=== PATIENT | female | born 1970 | race Caucasian/White ===

== ENCOUNTER 2024-09-16 15:20 | Emergency (ER) | payer MEDICAID, SELFPAY ==
--- NOTE | ~2024-09-16 | XR_ITS ---
CLINICAL HISTORY: lower back pain, no trauma 3 views lumbar spine Comparison: CR/LA - LUMBAR SPINE 2TO 3 [id number] - 06/27/14 15:59 EST Findings: Normal alignment. Straightening of lordosis. No acute fractures or dislocation. No significant degenerative change. IMPRESSION: Straightening of lordosis suggesting possible muscle spasm. This document has been electronically signed by: Alejandrina Mayo MD on 09/16/2024 16:42:47
[2024-09-16 15:35] VITALS: BP 135/73; PULSE 76; RESP 20; TEMP 36.8; O2SAT 95; BMI 26.0
--- NOTE | 2024-09-16 15:41 | ED_ITS ---
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 ? Patient recently moved to the area from [place] She states that for months she has had back pain that radiates to her legs, she also complains of burning with urination. She complains of left-sided rib pain. She took naproxen at 9:00 a.m. this morning with improvement in her pain. She states that her pain is beginning to come back pain Denies any fevers, chills, coughing, shortness of breath. She reports general weakness and decreased energy The patient also reports that she was seen in [place] last year for anxiety She has no other complaints or concerns at this time Related Data Previous Rx's ?Medication ?Instructions ?Recorded cyclobenzaprine 10 mg tablet 10 mg PO TID PRN muscle spasm #20 09/16/24 tabs nitrofurantoin 100 mg PO Q12H 5 days #10 caps 09/16/24 monohydrate/macrocrystals 100 mg capsule (Macrobid) Allergies Allergy/AdvReac Type Severity Reaction Status Date / Time acetaminophen [From PERCOCET] Allergy Severe ITCHING Verified 09/16/24 15:37 oxycodone [From PERCOCET] Allergy Severe ITCHING Verified 09/16/24 15:37 adhesive [BANDAGE,ADHESIVE] Allergy Unknown ITCHY Verified 09/16/24 15:37 tapentadol [Tapentadol] Allergy Unknown ITCHY Verified 09/16/24 15:37 Review of Systems 2 Constitutional: Constitutional: Denies body ache(s), Denies chills, Denies fever(s), Denies headache(s), Reports malaise and Reports weakness ENT: Denies vertigo, Denies dizziness and Denies headache(s) Cardiovascular: Cardiovascular: Denies dyspnea Respiratory: Respiratory: Denies cough and Denies dyspnea Gastrointestinal: Gastrointestinal: Denies abdominal pain, Denies nausea and Denies vomiting Musculoskeletal: Musculoskeletal: Reports back pain and Reports radiating pain into limb Integumentary/Breasts: Skin/Breast: Denies rash Neurologic: Denies vertigo, Denies dizziness, Denies headache(s) and Reports weakness Psychiatric: Psychiatric: Denies anxiety PMFSH Social History Social History Advance Directives: No Advance Directives Information Provided: No Do you have a plan to hurt others: No Plan Physical Exam ED Vital Signs: Vital Signs - 24 hr 09/16/24 15:35 Temperature 98.3 F Pulse Rate 76 Respiratory Rate 20 Blood Pressure 135/73 Pulse Oximetry 95 Oxygen Delivery Method Room Air BMI result Body Mass Index 26.0 Const General: healthy appearing, comfortable, no acute distress, alert and awake Nutritional Appearance: well nourished Orientation/consciousness: patient oriented x3 HENMT Head: Yes normocephalic and Yes atraumatic Eyes Eyelids: Yes eyelids normal Conjunctivae: conjunctivae normal Sclerae: sclerae normal Corneas: corneas normal Pupils: Equal, round and reactive pupils present EOM: EOMs intact bilaterally Neck Neck: Yes full ROM Chest Other: Left chest wall tenderness in the anterior axillary line. No crepitus or deformity Resp Effort & Inspection: normal respiratory effort, able to speak in complete sentences and not labored Cardio Rate: regular rate Rhythm: regular rhythm GI Inspection: No distended Palpation (GI): Soft to palpation, not firm, nontender, no guarding and not rigid Back/Spine/Pelvis Other: Tenderness across the lumbar paraspinous region. Straight leg raise negative bilaterally. Skin General skin exam: elasticity normal Neuro General: patient oriented x3 Cranial nerves: Yes Equal, round and reactive pupils present and Yes Bilaterally intact EOM present Cognition (Neuro): normal cognition Extrem Other: Moving all extremities well without any obvious deformities Course Course Course Narrative: This is a Rapid Medical Examination (RME) performed by Evie Vinson PA-C in triage. Full HPI, ROS, assessment and treatment plan per primary provider in the Main ED. 54 yo Citizen Of [place] speaking femaicol here for eval of myalgias x2 weeks, worsening over the last 2 days. pain is worse across her lower back. no upper respiratory sx. reports dysuria a few days ago. took naproxen at 0900 today. Plan: labs, UA, lumbar xr Reevaluation(s) Reevaluation #1: Patient's workup largely unremarkable, her urine does show trace bacteria with some leukocytes and leukocyte esterase, given that she was symptomatic we will treat for a UTI. We will treat her muscle spasms with cyclobenzaprine and she will be discharged to follow-up with the PCP Time: 22:34 Medications Administered Discontinued Medications Generic Name Dose Route Start Last Admin Trade Name Yuriy PRN Reason Stop Dose Admin Ketorolac Tromethamine 30 mg 09/16/24 20:48 09/16/24 21:05 Ketorolac Tromethamine 30 Mg/Ml Vial IM 09/16/24 20:49 30 mg ONCE ONE Administration Medical Decision Making Medical Decision Making [facility] Narrative: 54-year-old female presents for evaluation of weakness and back pain. Her symptoms seemed to have been going on for at least several months. She did not appear to have any acute issues. We will check urinalysis for her reported dysuria. Her labs do not show any significant abnormalities. The patient's lumbar x-ray shows straightening of the spine consistent with muscle spasms I discussed with the patient, we will treat with the Toradol. Differential Diagnosis Differential Diagnoses: The differential diagnosis associated with the presentation includes Back pain Radiculopathy Muscle spasm Fibromyalgia UTI Lab Data [facility] Lab Attestation statement: I reviewed the patient's lab results. No leukocytosis or significant anemia. Minor thrombocytosis of unclear etiology. No significant electrolyte abnormalities 09/16/24 16:14 09/16/24 16:14 Labs: Lab Results 09/16/24 09/16/24 Range/Units 16:14 21:47 WBC 9.3 (4.8-10.8) X10*3/uL RBC 4.57 (4.20-5.50) X10*6/uL Hgb 13.2 (12.0-16.0) g/dl Hct 39.9 (37.0-47.0) % MCV 87.3 (80.0-98.0) fL MCH 28.9 (27.0-33.0) pg MCHC 33.1 (31.0-35.0) g/dl RDW 12.0 (11.0-16.0) % Plt Count 408 H (160-400) X10*3/uL MPV 9.3 L (9.4-12.3) fL Immature Gran % (Auto) 0.2 (0.0-0.4) % Neut % (Auto) 53.4 (45-73) % Lymph % (Auto) 30.0 (20-40) % Seminole % (Auto) 8.2 (2-11) % Eos % (Auto) 7.4 H (0-4) % Baso % (Auto) 0.8 (0-2) % Lymph # (Auto) 2.8 (1.2-4.9) X10*3/uL Seminole # (Auto) 0.8 (0.1-1.2) X10*3/uL Eos # (Auto) 0.7 H (0.0-0.4) X10*3/uL Baso # (Auto) 0.1 (0.0-0.2) X10*3/uL Abs Immat Gran (auto) 0.02 (0.00-0.03) X10*3/uL Absolute Neuts (auto) 5.0 (2.0-8.3) x10*3/uL Absolute Nucleated RBC 0.000 (0.0-0.012) X10*3/uL Nucleated RBC % (auto) 0.0 (0.0-0.2) /100WBC Sodium 138 (135-145) mmol/L Potassium 3.8 (3.3-5.1) mmol/L Chloride 105 (96-108) mmol/L Carbon Dioxide 26 (22-29) mmol/L Anion Gap 11 L (12-20) BUN 16 (9-16) mg/dL Creatinine 0.68 (0.5-1.4) mg/dL Estim Creat Clear Calc 94.5 Estimated GFR > 60 Random Glucose 101 (60-115) mg/dL Calcium 9.7 (8.4-10.2) mg/dL Total Bilirubin 0.5 (0.0-1.0) mg/dL AST 23 (5-31) U/L ALT 17 (0-31) U/L Alkaline Phosphatase 49 (39-117) U/L Total Protein 8.4 H (6.5-8.0) g/dL Albumin 4.4 (3.5-5.0) g/dL Urine Color Dark Yellow Urine Appearance Cloudy Urine pH 5.0 (5.0-9.0) Ur Specific Bantam >= 1.030 H (1.005-1.025) Urine Protein Trace (Neg-Trace) mg/dL Urine Glucose (UA) Negative (Negative) mg/dL Urine Ketones Trace (Negative) mg/dL Urine Blood Negative (Negative) Urine Nitrite Negative (Negative) Ur Leukocyte Esterase Trace H (Negative) Urine RBC 3-5 H (0-2) /HPF Urine WBC 11-20 H (0-5) /HPF Ur Squamous Epith Cells 6-10 (0-2) /HPF Calcium Oxalate Crystal Present Urine Bacteria Trace (None Seen) Hyaline Casts 0-2 (0-2) /LPF Influenza Type A (PCR) NEGATIVE (Negative) Influenza Type B (PCR) NEGATIVE (Negative) RSV RNA Qual (PCR) NEGATIVE (Negative) SARS-CoV-2 RNA (RT-PCR) NEGATIVE (Negative) Radiology Impression Discussion of test interpretation with radiology: I have reviewed the radiologist's reading. Radiologist Impression: Findings: Normal alignment. Straightening of lordosis. No acute fractures or dislocation. No significant degenerative change. IMPRESSION: Straightening of lordosis suggesting possible muscle spasm. This document has been electronically signed by: Alejandrina Mayo MD on 09/16/2024 16:42:47 Discharge Plan Discharge Clinical Impression: Back pain, Weakness, Urinary tract infection Patient Disposition: Home, Self-Care Instructions: Urinary Tract Infection in Women (ED), Muscle Spasm (ED) Additional Instructions: Your workup in the ER was reassuring. Your urinalysis did show a slight UTI. Your x-ray showed muscle spasms. Take the antibiotic twice daily for the next 5 days to treat the UTI. You may use ibuprofen as needed for pain. Use cyclobenzaprine as needed for muscle spasms. This may make you drowsy, do not drink alcohol or drive after taking it Prescriptions: New cyclobenzaprine 10 mg tablet 10 mg PO TID PRN (Reason: muscle spasm) Qty: 20 0RF nitrofurantoin monohyd/m-cryst [Macrobid] 100 mg capsule 100 mg PO Q12H 5 Days Qty: 10 0RF Rx Instructions: must administer with a meal/food Print Language: Citizen Of [place]
[2024-09-16 16:21] LABS: MANUAL DIFF FLAG NO
[2024-09-16 16:25] LABS: Basophils Absolute Auto 0.1 X10*3/uL (0.0-0.2); Basophils Percent Auto 0.8 % (0-2); Eosinophils Absolute Auto 0.7 X10*3/uL (0.0-0.4); Eosinophils Percent Auto 7.4 % (0-4); Hematocrit 39.9 % (37.0-47.0); Hemoglobin 13.2 g/dl (12.0-16.0); Imm Gran Abs Auto 0.02 X10*3/uL (0.00-0.03); Imm Gran Pct Auto 0.2 % (0.0-0.4); Lymphocytes Absolute Auto 2.8 X10*3/uL (1.2-4.9); Mean Corpuscular HGB Conc 33.1 g/dl (31.0-35.0); Mean Corpuscular Hemoglobin 28.9 pg (27.0-33.0); Mean Corpuscular Volume 87.3 fL (80.0-98.0); Mean Platelet Volume 9.3 fL (9.4-12.3); Monocytes Absolute Auto 0.8 X10*3/uL (0.1-1.2); Monocytes Percent Auto 8.2 % (2-11); Neutrophils Percent Auto 53.4 % (45-73); Platelet Count 408 X10*3/uL (160-400); Red Blood Count 4.57 X10*6/uL (4.20-5.50); White Blood Count 9.3 X10*3/uL (4.8-10.8)
[2024-09-16 16:40] LABS: Alanine Aminotransferase 17 U/L (0-31); Albumin Level 4.4 g/dL (3.5-5.0); Alkaline Phosphatase 49 U/L (39-117); Anion Gap 11 (12-20); Aspartate Amino Transferase 23 U/L (5-31); Bilirubin Total 0.5 mg/dL (0.0-1.0); Blood Urea Nitrogen 16 mg/dL (9-16); Calcium 9.7 mg/dL (8.4-10.2); Carbon Dioxide 26 mmol/L (22-29); Chloride 105 mmol/L (96-108); Creatinine Clr Calc Pharmacy 94.5; Estimated Glomerular Filt Rate > 60; Glucose Random 101 mg/dL (60-115); Potassium 3.8 mmol/L (3.3-5.1); Sodium 138 mmol/L (135-145); Total Protein 8.4 g/dL (6.5-8.0)
[2024-09-16 17:01] LABS: Influenza A PCR NEGATIVE (Negative); Influenza B PCR NEGATIVE (Negative); Resp Syncy Virus RNA Qual PCR NEGATIVE (Negative); SARS COV2 PCR INHOUSE NEGATIVE (Negative)
--- OUTSIDE RECORDS SUMMARY | 2024-09-16 20:25 | XMS_ITS | Clinical Summary ---
Author Organization [facility] ity Address [address] [place] [address] Care Team Providers Care Ribber Name Role Phone Unavailable Primary Care Provider Unavailabl e Social History Tobacco Use Types Packs/Day Years Used Date Smoking Tobacco: Never Assessed Sex and Gender Information Value Date Recorded Sex Assigned at Not on file Gender Identity Not on file Sexual Orientation Not on file Plan of Treatment Health Maintenance Due Date Last Done Comments Breast Cancer Screening 1968 DTaP,Tdap,and Td Vaccines (1 - Tdap) 1987 Hepatitis B Vaccines (1 of 3 - 19+ 3-dose series) 1987 Cervical Cancer Screening: P ap Smear 1989 Zoster Vaccines (1 of 2) 2018 Colorectal Cancer Screening: Colonoscopy 09/17/2023 Depression Screening 09/17/2023 HIV Screening 09/17/2023 Hepatitis C Screening 09/17/2023 Social Influencers of Health Screening 09/17/2023 COVID-19 Vaccine (2023-2 5 season) 2024 Influenza Vaccine (#1) 2024 HIB Vaccines Aged Out No longer eligi ble based on patient's age to complete this topic HPV Vaccines Aged Out No longer eligi ble based on patient's age to complete this topic Hepatitis A Vaccines Aged Out No long er eligible based on patient's age to complete this topic IPV Vaccines Aged Out No longer eligi ble based on patient's age to complete this topic MMR Vaccines Aged Out No longer eligi ble based on patient's age to complete this topic Meningococcal ACWY Vaccine Aged Out N o longer eligible based on patient's age to complete this topic Pneumococcal Vaccine: Pediat rics (0 to 5 Years) and At-Risk Patients (6 to 64 Years) Aged Out No longer eligible b ased on patient's age to complete this topic RSV Immunization Patients Un paula 20 months Aged Out No longer eligible b ased on patient's age to complete this topic Varicella Vaccines Aged Out No longer eligible based on patient's age to complete this topic
--- OUTSIDE RECORDS SUMMARY | 2024-09-16 20:25 | XMS_ITS | Clinical Summary ---
Author Organization [employer] Address [address] [place] [address] [address] [place] [address] Care Team Providers Care Lift Slab Operator Name Role Phone Unavailable Primary Care Provider Unavailabl e Social History Tobacco Use Types Packs/Day Years Used Date Smoking Tobacco: Never Assessed Comments Unknown Sex and Gender Information Value Date Recorded Sex Assigned at Female 06/22/2022 10:18 AM EDT Legal Sex Female 10:18 AM EDT Gender Identity Choose not to disclose 10:18 AM EDT Sexual Orientation Choose not to disclose 2021 10:18 AM EDT Plan of Treatment Health Maintenance Due Date Last Done Comments CT Colonography 1968 Colonoscopy 1968 Colorectal Cancer Screening 1968 Depression Screening 1968 FIT DNA/Cologuard 1968 FIT 1968 FOBT 1968 Sigmoidoscopy 1968 Alcohol/Substance Use Screening 1980 Tobacco Screening 1980 Pap Smear 1989 DTaP/Tdap/Td Vaccines (1 - Tdap) 12/31/2006 12/30/2006 Mammogram 2008 Zoster Vaccines (1 of 2) 2018 Cervical Cancer Screening 12/09/2021 HPV/Cotest 12/09/2021 12/09/2016 COVID-19 Vaccine ( - 2023-2 5 season) 2024 Influenza Vaccine (#1) 2024 4, 05/20/2012, 05/14/2011 RSV Patients and Patients Aged 60 years or older (1 - 1-dose 75+ series) 2043 Pneumococcal Vaccine: Pediatrics (0 to 5 Years) and At-Risk Patients (6 to 64 Years) Aged Out 08/12/2005 No longer eligible b ased on patient's age to complete this topic Hepatitis B Vaccines Completed 10/25/2014, 08/09/2014, 06/05/2014 HIB Vaccines Aged Out No longer eligi [...] patient's age to complete this topic Meningococcal Vaccine Aged Out No angel billy eligible based on patient's age to complete this topic RSV under 20 months Aged Out No longe r eligible based on patient's age to complete this topic Rotavirus Vaccines Aged Out No longer eligible based on patient's age to complete this topic Procedures Procedure Name Priority Date/Time Associated Diagnosis Comments ZZZ HISTORICAL HPV MRNA E6/E7 Routine 12/09/2016 2:45 PM EDT from Last 3 Months or Most Recently Relevant to Health Maintenance Results * HPV mRNA E6/E7 (12/09/2016 2:45 PM EDT) HPV mRNA E6/E7 Not Detected NOT DETECTED [facility] Comment: This test was performed using the APTIMA(R) HPV Assay ([employer] This assay detects E6/E7 viral messenger RNA (mRNA) from 14 high-risk HPV types (16,18,31,33,35,39,45,51, 52,56,58,59,66,68). For additional information please refer to: http://education.Kiwup.SoundRoadie/faq/WIK439u6 (This link is being provided for informational/ educational purposes only.) Test Performed by [facility], [facility], [address] [place] [address] [id number] M.D., Ph.D., Director of Laboratories , [place] [id number] Please note: ??Effective 05/04/2016, HPV testing will be performed using [employer]'s APTIMA test which targets mRNA. Detecting mRNA instead of DNA, as in older methods, offers significant improvements in specificity. 12/09/2016 2:45 PM EDT us Milka Venegas CNM HISTORICAL/NON ORDERABLE LABS Final Result [facility] Anywhere [address] from Last 3 Months or Most Recently Relevant to Health Maintenance
[2024-09-16] MEDS: Ketorolac Tromethamine 30 MG/ML VIAL IM (21:05)
--- NOTE | 2024-09-16 21:07 | PC.NURSE ---
pt medicated for 8/10 pain per order
[2024-09-16 21:58] LABS: Appearance Urine Cloudy; Color Urine Dark Yellow; Glucose Urine UA Negative (Negative); Leukocyte Esterase Urine Trace (Negative); Nitrite Urine Negative (Negative); Specific Gravity - Urine >= 1.030 (1.005-1.025); UMIC TRIGGER UACC YES; Urine Blood Negative (Negative); Urine Ketones Trace mg/dL (Negative); Urine Protein Trace mg/dL (Neg-Trace)
[2024-09-16 22:08] LABS: Bacteria Urine Trace (None Seen); Calcium Oxalate Crystals Urine Present; Hyaline Casts Urine 0-2 /LPF (0-2); UACC Culture Trigger YES
[2024-09-16] MEDS: Cyclobenzaprine HCl 10 MG TABLET PO (23:33)
[2024-09-16 23:34] VITALS: BP 135/73; PULSE 76; RESP 20; TEMP 36.8; O2SAT 95
== END 2024-09-16 23:34 | disposition home or self-care (01) ==
PROVIDERS: Physician Assistant Medical; Emergency Provider Emergency Medicine Emergency Medical Services
DX: M54.42 Lumbago with sciatica, left side (principal); M54.41 Lumbago with sciatica, right side; R53.1 Weakness; N39.0 Urinary tract infection, site not specified; M79.18 Myalgia, other site; Z03.818 Encounter for observation for suspected exposure to other biological agents ruled out
CPT/HCPCS: 0241U; 72100; 80053; 81001; 85025; 87086; 96372; 99283; 99284; J1885

== ENCOUNTER 2025-06-25 12:37 | Outpatient (AMB) | payer MEDICAID, SELFPAY ==
--- NOTE | 2025-06-25 13:14 | A.OFFVIS_ITS ---
Vital Signs 06/25/25 13:15 Height 5 ft 6 in Weight 155 lb 6.814 oz BMI 25.1 BP 122/80 Blood Pressure Location Rt brachial Position Sitting Pulse 72 Pulse Source Pulse Oximeter Pulse Oximetry (%) 98 Oxygen Delivery Method Room Air Intake Visit Reasons: Asthma Executive Sales Assistant Required: Yes Executive Sales Assistant Language: Director Business Intelligence Services: Executive Sales Assistant Present Executive Sales Assistant Name: Margaret Lackey LM Allergies acetaminophen (From PERCOCET) Allergy (Severe, Verified 06/25/25 13:19) ITCHING oxycodone (From PERCOCET) Allergy (Severe, Verified 06/25/25 13:19) ITCHING adhesive (BANDAGE,ADHESIVE) Allergy (Unknown, Verified 06/25/25 13:19) ITCHY tapentadol (Tapentadol) Allergy (Unknown, Verified 06/25/25 13:19) ITCHY HPI HPI Asthma: Details: Ankita is a pleasant 55 year old female, never smoker, with underlying asthma, GERD, anxiety and depression. She was referred by PCP for pulmonary evaluation. She was diagnosed with asthma in her twenties and has not required intubation for severe exacerbations.The patient also has a history of bronchitis, experiencing eight episodes prior to starting a combination treatment that has since prevented further occurrences which included Flovent, Flonase, Singulair and Claritin. Currently, she uses albuterol as needed, but has not been on a daily inhaler recently due to insurance issues. She has had pneumonia multiple times, with the last episode reportedly coinciding with PFT performed in 2018 which demonstrated normal spirometry with response to bronchodilators, especially in small to medium airways and decreased DLCO. She denies recent chest imaging. She experiences allergic rhinitis, for which she takes Montelukast daily, and has not undergone allergy testing previously. She has not been exposed to pets or occupational hazards but reports dyspnea with strong artificial scents. Family history is significant for emphysema in her mother/father and chronic asthma in her sister. The patient has never smoked but had secondhand smoke exposure from her father. [facility] Social History (Updated 06/25/25 @ 13:19 by Margaret Parham CMA) Patient Tobacco Use Status: Never used Tobacco Review of Systems Const Denies chills, Denies excessive sweating, Denies fever(s), Denies headache(s) and Denies night sweats Eyes Denies dry eyes, Denies irritation and Denies itchy eyes ENT Reports Normal hearing present, Denies headache(s), Denies nasal congestion, Denies nasal discharge, Denies post nasal drip and Denies sore throat Card Denies chest pain, Denies chest pain at rest, Denies chest pain with activity, Denies claudication, Denies leg edema, Denies dyspnea, Denies dyspnea on exertion, Denies orthopnea and Denies paroxysmal nocturnal dyspnea Resp Denies chest congestion, Denies cough, Denies excessive phlegm production, Denies pain on inspiration, Denies pain with cough, Denies dyspnea, Denies dyspnea on exertion, Denies stridor and Denies wheezing Musc Denies myalgias Neuro Reports Normal hearing present and Denies headache(s) Endo Denies excessive sweating Candido/Lymph Denies lymphadenopathy Aller/Immun Denies itchy eyes, Denies seasonal rhinorrhea and Denies wheezing Physical Exam Vital Signs: Last Vital Signs Pulse 72 06/25/25 13:15 BP 122/80 06/25/25 13:15 Pulse Ox 98 06/25/25 13:15 Oxygen Delivery Method Room Air 06/25/25 13:15 BMI result Body Mass Index 25.1 Const General: cooperative, healthy appearing, comfortable, no acute distress, well developed and alert Orientation/consciousness: patient oriented x3 Limitations: no limitations HEENT Head: Yes normal to inspection, Yes normocephalic and Yes atraumatic Ears: hearing grossly normal bilaterally and external ears normal Eyes General: appearance normal, both eyes and all related structures Eyelids: Yes eyelids normal Sclerae: sclerae normal EOM: EOMs intact bilaterally Neck Neck: Yes normal visual inspection and Yes no lymphadenopathy Lymphatic: no lymphadenopathy noted Chest Chest palpation & inspection: normal inspection of the chest Resp Effort & Inspection: normal respiratory effort, able to speak in complete sentences, no audible wheezes, no cough, no stridor, not tachypneic, no tripod positioning and no use of accessory muscles Auscultation: diminished lung sounds Cardio Jugular venous distension: no JVD Rate: regular rate Rhythm: regular rhythm Skin Other: warm, dry General skin exam: no rashes or lesions noted Neuro General: patient oriented x3 Cranial nerves: Yes Normal hearing present Cognition (Neuro): normal cognition Gait exam (Neuro): Normal gait present Extrem General: Yes normal to inspection, Yes capillary refill normal, Yes no clubbing, cyanosis or edema and Yes no pedal edema Psych Appearance: grossly normal and well kempt Speech and movement: Normal speech and movement present and Clear speech present Affect: normal affect Attitude: cooperative Thought process: Normal thought process present Thought content: Normal thought content present Insight: Good insight present (Psych) Judgement: Good judgement present (Psych) Assessment & Plan Assessment & Plan (1) Asthma: Code(s): J45.909 - Unspecified asthma, uncomplicated Category: Medical (2) Environmental allergies: Code(s): Z91.09 - Other allergy status, other than to drugs and biological substances Category: Medical (3) Dyspnea on exertion: Code(s): R06.09 - Other forms of dyspnea Category: Medical Plan The patient will be started on a daily inhaler, Asmanex in place of Flovent, to manage her asthma symptoms and prevent exacerbations in addition to Albuterol MDI, Flonase, Claritin and Singulair. She is aware to call if symptoms do not improve. A chest x-ray and updated breathing test will be conducted to assess current respiratory status. If the inhaler is not effective, alternative medications will be considered. All questions were answered and patient is in agreement of plan. Will follow up in 8-10 weeks or sooner if needed. Orders: Orders Resp Allergy Profile Region I Today Z91.09 - Other allergy status, other than to drugs and biological substances Immunoglobulin E Today Z91.09 - Other allergy status, other than to drugs and biological substances PFT pulmonary function test Today J45.909 - Unspecified asthma, uncomplicated Complete Blood Count Auto Diff Today Z91.09 - Other allergy status, other than to drugs and biological substances XR chest 2V Today R06.09 - Other forms of dyspnea Medications: New fluticasone propionate 50 mcg/actuation 1 spray intranasal DAILY 16 grams 3RF mometasone 100 mcg/actuation (Asmanex HFA) 2 puffs inhalation BID 13 grams 3RF albuterol sulfate 90 mcg/actuation 2 puffs inhalation Q4-6H PRN 1 ea 3RF shortness of breath or wheezing Discontinued nitrofurantoin monohyd/m-cryst 100 mg (Macrobid) must administer with a meal/food Discontinued Reason: Order 100 mg PO Q12H 5 days 10 caps 0RF Coding Level of Care Code New Pt Level 4 (94672) Diagnoses Asthma J45.909 Environmental allergies Z91.09 Dyspnea on exertion R06.09
[2025-06-25 13:15] VITALS: BP 122/80; PULSE 72; O2SAT 98; BMI 25.1
--- OUTSIDE RECORDS SUMMARY | 2025-06-25 15:59 | XMS_ITS | Encounter Summary ---
Author Organization [employer] Address [address] [place] [address] [address] [place] [address] Care Team Providers Care Instructional Technology Facilitator Name Role Phone Unavailable Primary Care Provider Unavailabl e Encounter Details Date Type Department Care Team (Latest Contact Info) Description 09/14/2018 Abstract [facility]VERSION[facility] Dental, Provider, DDS Social History Tobacco Use Types Packs/Day Years Used Date Smoking Tobacco: Never Assessed Comments Unknown Sex and Gender Information Value Date Recorded Sex Assigned at Female 06/22/2022 10:18 AM EDT Legal Sex Female 10:18 AM EDT Gender Identity Choose not to disclose 10:18 AM EDT Sexual Orientation Choose not to disclose 2021 10:18 AM EDT documented as of this encounter Plan of Treatment Not on file documented as of this encounter Visit Diagnoses Not on filedocumented in this encounter
--- OUTSIDE RECORDS SUMMARY | 2025-06-25 16:00 | XMS_ITS | Clinical Summary ---
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 Role Phone Unavailable Primary Care Provider [...] 1968 FIT 1968 FOBT 1968 Sigmoidoscopy 1968 Disability Screening 1968 Alcohol/Substance Use Screening 1980 Tobacco Screening 1980 Pap Smear 1989 DTaP/Tdap/Td Vaccines (1 - Tdap) 12/31/2006 12/30/2006 Mammogram 2008 Pneumococcal Vaccine: 50+ Years (2 of 2 - PCV) 2018 08/12/2005 Zoster Vaccines (1 of 2) 2018 Cervical Cancer Screening 12/09/2021 HPV/Cotest 12/09/2021 12/09/2016 COVID-19 Vaccine (1 - 2023-2 5 season) 2025 Influenza Vaccine (#1) 2025 4, 05/20/2012, 05/14/2011 RSV Patients and Patients Aged 60 years or older (1 - 1-dose 75+ series) 2043 Hepatitis B Vaccines Completed 10/25/2014, 08/09/2014, 06/05/2014 [...] patient's age to complete this topic Meningococcal B Vaccine Aged Out No l onger eligible based on patient's age to complete [...] Procedure Name Priority Date/Time Associated Diagnosis Comments [facility]ah[facility]aZZ HISTORICAL HPV MRNA E6/E7 Routine 12/09/2016 2:45 PM EDT from Last 3 Months or Most Recently Relevant to Health Maintenance Results * HPV mRNA E6/E7 (12/09/2016 2:45 PM EDT) HPV mRNA E6/E7 Not Detected NOT DETECTED [facility] Comment: This test was performed using the APTIMA(R) HPV Assay ([employer] This assay detects E6/E7 viral messenger RNA (mRNA) from 14 high-risk HPV types (16,18,31,33,35,39,45,51, 52,56,58,59,66,68). For additional information please refer to: http://education.[employer].Global Grind/faq/ZDD440i5 (This link is being provided for informational/ educational purposes only.) Test Performed by [facility], [facility], [address] [place] [id number] [address] Stephens M.D., Ph.D., Director of Laboratories , [place] [id number] Please note: Effective 05/04/2016, HPV testing will be performed using [employer]'s APTIMA test which targets mRNA. Detecting mRNA instead of DNA, as in older methods, offers significant improvements in specificity. 12/09/2016 2:45 PM EDT us Milka Venegas CNM HISTORICAL/NON ORDERABLE LABS Final Result [facility] [address] from Last 3 Months or Most Recently Relevant to Health Maintenance
--- OUTSIDE RECORDS SUMMARY | 2025-06-25 16:00 | XMS_ITS | Patient Health Record ---
Author Organization [facility] Address [address] [place] [id number] Care Team Providers Care Triage Nurse Name Role Phone Geovanna Perera MD, [facility] Primary Care Provide Kvng Herring Unavailable [phone] Allergies Allergen (clinical drug ingredient) Drug/Non Drug Allergy documented on EMR Reaction Allergy Type Onset Date Status acetaminophen / oxycodone Percocet Unknown Drug Allergy Active Reason For Referral No Information Medications Medication SIG (Take, Route, Fr equency, Duration) Notes Start Date End Date Status Protonix 40 MG 1 tablet Orally Once a day Active Bentyl 10 MG 1 capsule Orally Fou r times a day prn abdominal cramps, bloating, diarrhea; Duration: 30 day(s) 11/07/2015 Active Clobetasol Propionate Active SEROquel Active Bentyl 10 MG 1 capsule Orally Fou r times a day prn abdominal cramps, bloating, diarrhea; Duration: 30 day(s) Active Problems Problem Type SNOMED Code ICD Code Onset Dates Problem Status W/U Status Risk Notes Problem Irritable bowel syndrome with diarrhea (886013478) Irritable bowel syndrome with diarrhea (K58.0) Active confirmed Problem Gastroesophageal reflux disease (509047137) Gastroesophageal reflux disease, esophagitis presence not specified (K21.9) Active confirmed Plan Of Treatment Pending Test Test Name Order Date ENDOMYSIAL IGA 07/23/2011 TRANSGLUTAMINASE AB IGA 07/23/2011 TRANSGLUTAMINASE AB IGG 07/23/2011 Future Test Test Name Order Date UPPER GI ENDOSCOPY 05/09/2013 Insurance Providers Payer Name Payer Address Payer Phone Subscriber Number Group Number Insured Name Patient Relationship to Insured Coverage Start Date Coverage End Date MEDICAID OF [facility] [id number] [place] [phone] [id number] SHAYE VILLEGAS Self - patient is the insured Medical (General) History Medical History History ICD Code Depression and anxiety GERD Irritable bowel syndrome Denies [place],DM,CVA,Lung disease,renal dise ase Colonoscopy in 08/2011 was normal-bx neg for microscopic colitis, no polyps Neg. colonoscopy at [facility] in 2005 Infectious colitis in 2009 Negative celiac disease antibodies in 20 11 EGD in 2012--normal duodenal biopsies;sm all HH, no esophagitis Surgical History Surgery Date(Month/Year) cholecystectomy tubal ligation section laparoscopy by HOME CARE MANAGER RN in early 2012 for a ? of a uterine polyp or fibroid, by her description
== END 2025-06-25 13:47 | disposition home or self-care (01) ==
LOC: HO.HPS 12:38
PROVIDERS: PCP Student in an Organized Health Care Education/Training Program; Referring Provider Student in an Organized Health Care Education/Training Program; Visit Provider Nurse Practitioner Family
DX: J45.909 Unspecified asthma, uncomplicated (principal); Z91.09 Other allergy status, other than to drugs and biological substances; R06.09 Other forms of dyspnea
CPT/HCPCS: 99204

== ENCOUNTER 2025-06-25 12:37 | Outpatient (REF) | payer OTHER, SELFPAY ==
--- NOTE | ~2025-06-25 | XR_ITS ---
EXAMINATION: XR CHEST CLINICAL INFORMATION: R06.09 - Other forms of dyspnea COMPARISON: X-ray 08/15/2018 TECHNIQUE: 2 views of the chest were obtained. FINDINGS: The cardiomediastinal silhouette is within normal limits. The lungs are well expanded. Redemonstrated bronchial wall thickening. There is no focal consolidation, edema, or effusion. No pneumothorax. No acute osseous abnormality. Thoracic spine degeneration XR/XR chest 2V IMPRESSION: Bronchial wall thickening can be seen with small airway disease. Electronically signed by: Navin Camarena MD 06/26/2025 02:36 PM EST
[2025-06-25 14:06] LABS: MANUAL DIFF FLAG NO
[2025-06-25 14:39] LABS: Hematocrit 40.8 % (37.0-47.0); Hemoglobin 13.5 g/dl (12.0-16.0); Imm Gran Abs Auto 0.04 X10*3/uL (0.00-0.03); Imm Gran Pct Auto 0.5 % (0.0-0.4); Lymphocytes Absolute Auto 2.2 X10*3/uL (1.2-4.9); Mean Corpuscular HGB Conc 33.1 g/dl (31.0-35.0); Mean Corpuscular Hemoglobin 28.9 pg (27.0-33.0); Mean Corpuscular Volume 87.4 fL (80.0-98.0); NRBC Abs Auto 0.000 X10*3/uL (0.0-0.012); NRBC Pct Auto 0.0 /100WBC (0.0-0.2); Platelet Count 321 X10*3/uL (160-400); Red Blood Count 4.67 X10*6/uL (4.20-5.50); White Blood Count 8.9 X10*3/uL (4.8-10.8)
[2025-06-27 07:44] LABS: Class Alternaria alternata 0; Class Aspergillus fumigatus 0; Class Bermuda Grass 0; Class Birch 0; Class Cat Dander 0; Class Cladosporium herbarum 0; Class Cockroach 2; Class Common Ragweed 0; Class Cottonwood 0; Class Derm. pterony 2; Class Dermatophagoides farinae 2; Class Dog Dander 2; Class Elm 0; Class Maple Box Elder 0; Class Mountain Cedar 0; Class Mouse Urine Protein 0; Class Mugwort 0; Class Oak 0; Class Penicillium crysogenum 0; Class Rough Pigweed 0; Class Sheep Sorrel 0; Class Sycamore 0; Class Timothy Grass 0/1; Class Walnut Tree 0; Class White Ash 0; Class White Mulberry 0; D002 - IgE D farinae 2.57 kU/L; E001 - IgE Cat Dander <0.10 kU/L; E005 - IgE Dog Dander 2.03 kU/L; G006 - IgE Timothy Grass 0.12 kU/L; I006-IgE Cockroach, German 1.69 kU/L; M002 - IgE Cladosporium herbar <0.10 kU/L; M003 - IgE Aspergillus fumigat <0.10 kU/L; M006 - IgE Alternaria alternat <0.10 kU/L; T001 IgE Maple/Box Elder <0.10 kU/L; T006 - IgE Cedar, Mountain <0.10 kU/L; T007 - IgE Oak, White <0.10 kU/L; T008 IgE Elm, American <0.10 kU/L; T010 - IgE Walnut <0.10 kU/L; T011 - IgE Maple Leaf Sycamore <0.10 kU/L; T014 - IgE Cottonwood <0.10 kU/L; T015 - IgE Ash, White <0.10 kU/L; T070 - IgE White Mulberry <0.10 kU/L; W001 - IgE Ragweed, Short <0.10 kU/L; W006 - IgE Mugwort <0.10 kU/L; W014 IgE Pigweed, Common <0.10 kU/L; W018 IgE Sheep Sorrel <0.10 kU/L
== END 2025-06-25 12:38 | disposition home or self-care (01) ==
LOC: HO.LAB 12:37
PROVIDERS: PCP Student in an Organized Health Care Education/Training Program; Referring Provider Student in an Organized Health Care Education/Training Program; Visit Provider Nurse Practitioner Family
DX: R06.09 Other forms of dyspnea (principal); J45.909 Unspecified asthma, uncomplicated; Z91.09 Other allergy status, other than to drugs and biological substances; Z79.899 Other long term (current) drug therapy
CPT/HCPCS: 36415; 71046; 82785; 85025; 86003; 99212

== ENCOUNTER → 2025-06-25 14:07 | Outpatient (BNV) | payer MEDICAID, SELFPAY | PROVIDERS: PCP Student in an Organized Health Care Education/Training Program; Referring Provider Student in an Organized Health Care Education/Training Program; Visit Provider Radiology Diagnostic Ultrasound | DX: R06.09 Other forms of dyspnea (principal) | CPT/HCPCS: 71046 ==